=== PATIENT | male | born 1990 ===

== ENCOUNTER 2017-02-20 01:09 | Emergency (ER) | payer OTHER ==
[2017-02-20 01:27] VITALS: BMI 34.0
[2017-02-20 01:29] VITALS: TEMP 97.8
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
[2017-02-20] MEDS ORDERED: Sodium Chloride 0.9% 1,000 ML IV STA (04:09)
[2017-02-20 04:36] VITALS: RESP 17
[2017-02-20 05:41] VITALS: O2SAT 97
[2017-02-20 05:46] LABS: BASO # 0.1 K/uL (0.0-0.2); EOS # 0.1 K/uL (0.0-0.7); EOS % 0.6 % (0.0-4.0); LYMPH % 20.8 % (20.0-40.0); MEAN CELL VOLUME 86.2 fl (80.0-94.0); MEAN CORPUSCULAR HEMOGLOBIN 29.4 pg (27.0-31.0); MEAN CORPUSCULAR HGB CONC 34.1 g/dL (33.0-37.0); MEAN PLATELET VOLUME 8.5 fl (7.2-11.7); MONO # 0.6 K/uL (0.0-0.8); MONO % 6.4 % (0.0-10.0); NEUT % 71.2 % (50.0-75.0); NRBC % 0.6 % (0.0-0.0); RBC 5.79 Mil/uL (4.40-5.90); WHITE BLOOD COUNT 9.9 K/uL (4.8-10.8)
[2017-02-20 05:56] LABS: ALBUMIN 5.3 g/dL (3.5-5.0); ALT/SGPT 96 U/L (21-72); AST/SGOT 44 U/L (17-59); BLOOD UREA NITROGEN 10 mg/dl (9-20); CALCIUM 9.6 mg/dL (8.4-10.2); GFR AFRICAN-AMERICAN > 60; GFR NON-AFRICAN AMERICAN > 60
[2017-02-20 06:11] LABS: ALB/GLOB RATIO 1.6 (1.0-2.1)
[2017-02-20 06:24] VITALS: BP 144/77; PULSE 102
--- NOTE | 2017-02-20 10:04 | CARD ---
APPROVED REPORT EKG Measurement Heart [id number] <Conclusion> Sinus tachycardia Otherwise normal ECG
--- NOTE | 2017-02-20 10:16 | CT ---
PROCEDURE: CT Cervical Spine without contrast HISTORY: [facility] COMPARISON: None available. TECHNIQUE: Axial computed tomography images were obtained of the cervical spine without the use of intravenous contrast. Coronal and sagittal reformatted images were created and reviewed. Radiation dose: Total exam DLP = 621.70 mGy-cm. This CT exam was performed using one or more of the following dose reduction techniques: Automated exposure control, adjustment of the mA and/or kV according to patient size, and/or use of iterative reconstruction technique. FINDINGS: VERTEBRAE: No fracture. Normal alignment. No destructive bony lesion. DISCS/SPINAL CANAL/NEURAL FORAMINA: No significant central canal or neural foraminal stenosis. Discs heights are grossly preserved. PARASPINAL SOFT TISSUES: Unremarkable. OTHER FINDINGS: None. IMPRESSION: Unremarkable CT of the cervical spine. No fracture or dislocation Preliminary interpretation of this examination was reported by [facility] at 3:49 a.m. on 02/20/2017. There is concurrence of this report with the preliminary interpretation.
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
== END 2017-02-20 06:17 | disposition home or self-care (01) ==
LOC: H.ER 01:09
DX: Z04.1 Encounter for examination and observation following transport accident (principal); F10.129 Alcohol abuse with intoxication, unspecified; I10 Essential (primary) hypertension; R00.0 Tachycardia, unspecified
CPT/HCPCS: 70450; 72125; 80053; 82948; 84443; 85025; 93005; 96360; 99285; G0480; J7040